=== PATIENT | female | born 1930 | race Hispanic/Latino ===

== ENCOUNTER 2017-03-18 23:09 | Emergency (ER) | payer MEDICARE ==
[2017-03-18] MEDS ORDERED: Sodium Chloride 0.9% 1,000 ML IV STA (23:25)
[2017-03-18 23:41] LABS: BASO # 0.1 K/uL (0.0-0.2); BASO % 0.5 % (0.0-2.0); HEMOGLOBIN 13.3 g/dL (12.0-16.0); LYMPH # 0.6 K/uL (1.0-4.3); LYMPH % 4.4 % (20.0-40.0); MEAN CELL VOLUME 95.4 fl (81.0-99.0); MEAN CORPUSCULAR HEMOGLOBIN 31.8 pg (27.0-31.0); MEAN CORPUSCULAR HGB CONC 33.3 g/dL (33.0-37.0); MEAN PLATELET VOLUME 8.1 fl (7.2-11.7); MONO # 1.3 K/uL (0.0-0.8); MONO % 9.4 % (0.0-10.0); NEUT # 11.8 K/uL (1.8-7.0); NEUT % 85.7 % (50.0-75.0); PLATELET COUNT 156 K/uL (130-400); RBC 4.19 Mil/uL (3.80-5.20); RED CELL DISTRIBUTION WIDTH 13.7 % (11.5-14.5); WHITE BLOOD COUNT 13.8 K/uL (4.8-10.8)
--- NOTE | 2017-03-18 23:53 | CT ---
EXAM: CT Head Without Intravenous Contrast CLINICAL HISTORY: 86 years old, female; Signs and symptoms; Altered mental status/memory loss; Additional info: AMS TECHNIQUE: Axial computed tomography images of the head/brain without intravenous contrast. All CT scans at this facility use one or more dose reduction techniques, viz.: automated exposure control; ma/kV adjustment per patient size (including targeted exams where dose is matched to indication; i.e. head); or iterative reconstruction technique. COMPARISON: No relevant prior studies available. FINDINGS: Brain: There is mild diffuse cerebral atrophy present, consistent with this patient's age. There is mild diffuse heterogeneity of the white matter attenuation, consistent with chronic white matter ischemic changes. No hemorrhage. Ventricles: The ventricular system demonstrates mild diffuse compensatory enlargement. Bones/joints: Unremarkable. No acute fracture. Soft tissues: Unremarkable. Sinuses: Unremarkable as visualized. No acute sinusitis. Mastoid air cells: Unremarkable as visualized. No mastoid effusion. IMPRESSION: Age-related atrophy and chronic white matter ischemic changes, with no evidence of an acute intracranial abnormality.
[2017-03-18 23:56] LABS: BLOOD UREA NITROGEN 23 mg/dl (7-17); CALCIUM 9.1 mg/dL (8.4-10.2); GFR AFRICAN-AMERICAN > 60; GFR NON-AFRICAN AMERICAN > 60
[2017-03-19] MEDS ORDERED: Potassium Chloride 20 mEq ER Tab PO ONE (00:09)
--- NOTE | 2017-03-19 00:25 | ED PDOC ---
HPI: Altered Mental Status Time Seen by Provider: 03/18/17 23:14 Chief Complaint (Nursing): Weakness/Neurological Deficit Chief Complaint (Provider): Altered Mental Status History Per: Patient History/Exam Limitations: None Onset/Duration Of Symptoms: Hrs (x 2) Current Symptoms Are (Timing): Gone Now Additional Complaint(s): Kirsten is an 86 y/o female with a history of high blood pressure and thyroid disease, who was brought to the ED by EMS after her daughter called her and noticed patient was confused with speech that sounded like she wasn't wearing her dentures. Upon arrival, she is alert and oriented. Patient states she had a mild headache today but has no other medical complaints. She denies fever, chills, cough, nausea, vomiting, diarrhea, chest pain, or shortness of breath. PMD: Yu Paz Past Medical History Reviewed: Historical Data, Nursing Documentation, Vital Signs Vital Signs: Last Vital Signs Temp 101.1 F H 03/18/17 23:11 Pulse 99 H 03/18/17 23:11 Resp 18 03/18/17 23:11 BP 114/49 L 03/18/17 23:11 Pulse Ox 100 03/18/17 23:11 - Medical History PMH: HTN, Hypothyroidism - Family History Family History: States: Unknown Family Hx - Allergies Allergies/Adverse Reactions: Allergies Allergy/AdvReac Type Severity Reaction Status Date / Time codeine Allergy RASH Verified 03/18/17 23:15 Penicillins Allergy RASH Verified 03/18/17 23:11 Review of Systems ROS Statement: Except As Marked, All Systems Reviewed And Found Negative Constitutional: Negative for: Fever, Chills Cardiovascular: Negative for: Chest Pain Respiratory: Negative for: Cough, Shortness of Breath Gastrointestinal: Negative for: Nausea, Vomiting, Diarrhea Neurological: Positive for: Change in Speech (resolved), Confusion (resolved), Altered Mental Status (resolved), Headache (mild) Physical Exam - Reviewed Nursing Documentation Reviewed: Yes Vital Signs Reviewed: Yes - Physical Exam Appears: Positive for: Non-toxic, No Acute Distress Head Exam: Positive for: ATRAUMATIC, NORMAL INSPECTION, NORMOCEPHALIC Skin: Positive for: Normal Color, Warm (warm to touch), Dry Eye Exam: Positive for: EOMI, Normal appearance, PERRL ENT: Positive for: Normal ENT Inspection Neck: Positive for: Normal, Painless ROM, Supple (no meningismus) Cardiovascular/Chest: Positive for: Regular Rate, Rhythm. Negative for: Murmur Respiratory: Positive for: Normal Breath Sounds. Negative for: Respiratory Distress Gastrointestinal/Abdominal: Positive for: Normal Exam, Bowel Sounds, Soft. Negative for: Tenderness Back: Positive for: Normal Inspection Extremity: Positive for: Normal ROM. Negative for: Pedal Edema, Deformity Neurologic/Psych: Positive for: Alert, Oriented. Negative for: Motor/Sensory Deficits - Laboratory Results Result Diagrams: 03/18/17 23:37 03/18/17 23:37 - ECG O2 Sat by Pulse Oximetry: 100 (RA) Pulse Ox Interpretation: Normal Medical Decision Making Medical Decision Making: Time: 23:23 Initial Impression: UTI Initial Plan: --CT Head --EKG --BMP --Urine Drug Screen --Lactic Acid --CBC --Chest x-ray --Potassium Chloride --Tylenol --Blood Culture Rechecked temp during interview is 100.2 without any intervention. Time: 23:53 CT HEAD FINDINGS: Brain: There is mild diffuse cerebral atrophy present, consistent with this patient's age. There is mild diffuse heterogeneity of the white matter attenuation, consistent with chronic white matter ischemic changes. No hemorrhage. Ventricles: The ventricular system demonstrates mild diffuse compensatory enlargement. Bones/joints: Unremarkable. No acute fracture. Soft tissues: Unremarkable. Sinuses: Unremarkable as visualized. No acute sinusitis. Mastoid air cells: Unremarkable as visualized. No mastoid effusion. IMPRESSION: Age-related atrophy and chronic white matter ischemic changes, with no evidence of an acute intracranial abnormality. Daughter relates that patient has been sleep deprived recently and that today's episode may have to do with that and also the news of her sister passing today. Workup is negative except nonspecific leukocytosis and hypokalemia. Sepsis is not suspected at his time, rather instead a spurious elevation of temperature that may have caused temporary delirium along with sleep deprivation and emotional trauma. Advised patient to eat more foods rich in potassium. Also advised patient that she must followup with Dr. Paz tomorrow or the next day. Strict return precautions were given: worsening fevers, confusion, or any other concerning symptoms. Scribe Attestation: Documented by Ag Harris, acting as a scribe for Poncho Wong MD Provider Scribe Attestation: All medical record entries made by the Scribe were at my direction and personally dictated by me. I have reviewed the chart and agree that the record accurately reflects my personal performance of the history, physical exam, medical decision making, and the department course for this patient. I have also personally directed, reviewed, and agree with the discharge instructions and disposition. Disposition - Clinical Impression Clinical Impression: Fever - Disposition Referrals: Yu Paz MD [Family Provider] - Disposition Time: 02:23 Condition: STABLE Additional Instructions: Please followup with Dr. Paz in 1 - 2 days. If the fever persists or other concerning symptoms develop, please return to the E.R. Instructions: Fever in Adults (ED), Acute Delirium (ED) Forms: [employer] ([place])
[2017-03-19 01:17] LABS: SQUAMOUS EPITHIAL 1 /hpf (0-5); URINE BILIRUBIN NEGATIVE (NEGATIVE); URINE BLOOD MODERATE (NEGATIVE); URINE CLARITY SLIGHTY-CLOUDY (Clear); URINE COLOR YELLOW (YELLOW); URINE GLUCOSE (UA) NEG (Normal); URINE LEUKOCYTE ESTERASE NEG Leu/uL (Negative); URINE NITRATE NEGATIVE (NEGATIVE); URINE PROTEIN NEGATIVE (NEGATIVE); URINE UROBILINOGEN 0.2-1.0 mg/dL (0.2-1.0)
[2017-03-19 01:25] LABS: BARBITURATES, UR NEGATIVE (NEGATIVE); BENZODIAZEPINES, UR NEGATIVE (NEGATIVE); OPIATES, UR NEGATIVE (NEGATIVE); PHENCYCLIDINE, UR NEGATIVE (NEGATIVE)
--- NOTE | 2017-03-19 01:30 | RAD ---
EXAM: XR Chest, 1 View CLINICAL HISTORY: 86 years old, female; Signs and symptoms; Fever TECHNIQUE: Frontal view of the chest 11:50 PM 03/18/2017. COMPARISON: CR - DX-CHEST PA 2012-06-10 23:47 FINDINGS: Lungs: The lung bases are limited by soft tissue artifact. No focal consolidation. Pleural space: Unremarkable. No pneumothorax. Heart: Unremarkable. No cardiomegaly. Mediastinum: Unremarkable. Bones/joints: Degenerative changes in the spine. IMPRESSION: No acute findings.
[2017-03-19 01:31] VITALS: BP 111/64; PULSE 79; RESP 19; TEMP 98.3
[2017-03-19 01:37] LABS: LYMPHOCYTE 7 % (20-50); MONOCYTE 6 % (0-10); NEUTROPHIL 87 % (42-75); TOTAL CELLS COUNTED 100
[2017-03-19 01:39] LABS: ANISOCYTOSIS SLIGHT; STOMATOCYTES SLIGHT
[2017-03-19 01:43] VITALS: O2SAT 100
[2017-03-19 02:54] LABS: PLATELET ESTIMATE NORMAL (NORMAL)
--- NOTE | 2017-03-19 08:05 | CARD ---
APPROVED REPORT EKG Measurement Heart [id number] <Conclusion> Normal sinus rhythm Low voltage QRS Nonspecific ST and T wave abnormality Abnormal ECG
== END 2017-03-19 02:00 | disposition home or self-care (01) ==
LOC: H.ER 23:09
DX: R50.9 Fever, unspecified (principal); R41.0 Disorientation, unspecified; Z72.820 Sleep deprivation; E03.9 Hypothyroidism, unspecified; E87.6 Hypokalemia; I10 Essential (primary) hypertension; N39.0 Urinary tract infection, site not specified; Z88.0 Allergy status to penicillin
CPT/HCPCS: 70450; 71010; 80048; 80320; 80324; 80345; 80346; 80349; 80353; 80358; 80361; 81003; 82948; 83605; 83992; 85025; 87040; 87086; 87804; 93005; 99284; J7040